=== PATIENT | female | born 1965 | race Caucasian/White ===

== ENCOUNTER 2016-04-30 12:22 | Emergency (ER) | payer OTHER ==
[2016-04-30 12:34] VITALS: BP 140/77; PULSE 104; TEMP 97.9; BMI 29.9
[2016-04-30] MEDS ORDERED: KETOROLAC TROMETHAMINE 60 MG/2 ML VIAL IM ONE (13:45)
--- NOTE | 2016-04-30 13:45 | PDOC ---
History of Present Illness - General Chief Complaint: Back Pain Stated Complaint: LOWER BACK PAIN Time Seen by Provider: 04/30/16 13:24 History Source: Patient Exam Limitations: No Limitations - History of Present Illness Initial Comments: CHIEF COMPLAINT: 51 y/o female c/o left sided low back pain radiating to her left leg x 2 days. HISTORY OF PRESENT ILLNESS: The patient states she lifted up to grab dry cleaning and felt a twinge in her left low back. Since then she has had pain shooting down her left leg and is having trouble getting comfortable. She took 1 voltaren yesterday which helped for a little while. She denies fall, trauma to back, numbness/tingling in lower extremities, bowel/bladder incontinence. Vital signs on arrival are notable for pulse of 104. REVIEW OF SYSTEMS: GENERAL/CONSTITUTIONAL: No fever/chills. No weakness. No weight change. GENITOURINARY: No dysuria, frequency, or change in urination. MUSCULOSKELETAL: No neck pain. +left low back pain radiating down left leg SKIN: No rash or easy bruising. NEUROLOGIC: No headache, vertigo, loss of consciousness, or loss of sensation. PHYSICAL EXAM: GENERAL: The patient is awake, alert, and fully oriented, in no acute distress. HEAD: Normal with no signs of trauma. BACK: No midline lumbar spine TTP. TTP of left lumbar paravertebral muscles. Pain in leg reproduced with palpation of left gluteal muscles. EXTREMITIES: Normal range of motion, no edema. NEUROLOGICAL: Normal speech, normal gait. CN II-XII grossly intact. No saddle anesthesia. PSYCH: Normal mood, normal affect. SKIN: Warm, dry, normal turgor, no rashes or lesions noted. Past History - Past Medical History Allergies/Adverse Reactions: Allergies Allergy/AdvReac Type Severity Reaction Status Date / Time No Known Allergies Allergy Verified 04/30/16 12:31 Home Medications: Ambulatory Orders Diazepam [Valium] 5 mg PO HS #5 tablet MDD 3 04/30/16 Ibuprofen 600 mg PO TID #20 tablet 04/30/16 - Psycho/Social/Smoking Cessation Hx Anxiety: No Suicidal Ideation: No Smoking History: Never smoked Have you smoked in the past 12 months: No Information on smoking cessation initiated: No Hx Alcohol Use: No Drug/Substance Use Hx: No Substance Use Type: None *Physical Exam - Vital Signs Last Vital Signs Temp Pulse Resp BP Pulse Ox 97.9 F 104 H 18 140/77 100 04/30/16 12:32 04/30/16 12:32 04/30/16 12:32 04/30/16 12:32 04/30/16 12:32 Medical Decision Making - Medical Decision Making A/P: 51 y/o female with left low back pain with sciatica. Will give IM Toradol; muscle relaxer not given because patient driving home. Showed the patient some stretching exercises to perform at home to help with pain. Suggested she also use heating pad and have someone massage her left butt to help relief muscle spasm Will send rx for ibuprofen and valium. Instructed her to take valium at night to help with sleep and that it may cause drowsiness. The patient verbalizes understanding of all instructions, has no further questions and is awaiting discharge. *DC/Admit/Observation/Transfer Diagnosis at time of Disposition: Low back pain with sciatica Qualifiers: Chronicity: acute Back pain laterality: right Sciatica laterality: sciatica of right side Qualified Code(s): M54.41 - Lumbago with sciatica, right side - Discharge Dispostion Disposition: HOME Condition at time of disposition: Improved - Prescriptions Prescriptions: Ibuprofen 600 mg PO TID #20 tablet Diazepam [Valium] 5 mg PO HS #5 tablet MDD 3 - Referrals Referrals: STAFF,NOT ON [Primary Care Provider] - - Patient Instructions Printed Discharge Instructions: DI for Back Pain With Sciatica Additional Instructions: Discharge instructions: -Take medications as prescribed -Valium may cause drowsiness -Do stretching exercises every hour to help relieve symptoms -Have someone massage your back to help with pain -Use heating pad to affected area Print Language: THAI
[2016-04-30] MEDS ORDERED: KETOROLAC TROMETHAMINE 60 MG/2 ML VIAL ONE (13:56)
== END 2016-04-30 14:13 | disposition home or self-care (01) ==
LOC: JERFT 12:22
PROC: 3E0233Z Introduction of Anti-inflammatory into Muscle, Percutaneous Approach (ICD-10-PCS; principal; 2016-04-30)
DX: M54.42 Lumbago with sciatica, left side (principal)
CPT/HCPCS: 99281-25

== ENCOUNTER 2016-08-13 07:06 | Emergency (ER) | payer OTHER ==
[2016-08-13 07:53] VITALS: BP 135/73; PULSE 88; TEMP 98.6; BMI 30.5
[2016-08-13] MEDS ORDERED: predniSONE 20 MG TABLET (UD) PO ONE (08:27)
[2016-08-13] MEDS ORDERED: predniSONE 20 MG TABLET (UD) ONE (08:30)
--- NOTE | 2016-08-13 08:34 | PDOC ---
History of Present Illness - General Chief Complaint: Allergic Reaction Stated Complaint: ALLERGIC REACTION Time Seen by Provider: 08/13/16 07:41 History Source: Patient Exam Limitations: No Limitations - History of Present Illness Initial Comments: 08/13/16 08:28 pt with itchy eyes redness around the eyes for 4 weeks. Pt also with itchy redness to left arm. Pt applying neosporin around her eyes as well as using cromylyn drops and taking ada. no fever no chills no medical history. 08/13/16 16:53 Past History - Past Medical History Allergies/Adverse Reactions: Allergies Allergy/AdvReac Type Severity Reaction Status Date / Time No Known Allergies Allergy Verified 04/30/16 12:31 Home Medications: Ambulatory Orders Diazepam [Valium] 5 mg PO HS #5 tablet MDD 3 04/30/16 Ibuprofen 600 mg PO TID #20 tablet 04/30/16 Prednisone [Deltasone -] 20 mg PO DAILY #7 tablet 08/13/16 Other medical history: denies - Psycho/Social/Smoking Cessation Hx Anxiety: Yes Suicidal Ideation: No Smoking History: Never smoked Have you smoked in the past 12 months: No Information on smoking cessation initiated: No Hx Alcohol Use: No Drug/Substance Use Hx: No Substance Use Type: None *Physical Exam - Vital Signs Last Vital Signs Temp Pulse Resp BP Pulse Ox 98.6 F 88 20 135/73 98 08/13/16 07:49 08/13/16 07:49 08/13/16 07:49 08/13/16 07:49 08/13/16 07:49 - Physical Exam General Appearance: Yes: Nourished, Appropriately Dressed HEENT: positive: EOMI, ANGELIQUE, Normal ENT Inspection, TMs Normal, Pharynx Normal, Other (periorbital bilaterally erythema with scaly rash , no eye pain or discharge from eyes) Neck: positive: Supple. negative: Tender Respiratory/Chest: positive: Lungs Clear, Normal Breath Sounds Cardiovascular: positive: Regular Rhythm, Regular Rate Extremity: positive: Normal Capillary Refill, Normal Inspection, Normal Range of Motion Integumentary: positive: Normal Color, Dry, Warm, Other (no rash to arms at present) Neurologic: positive: Fully Oriented, Alert, Normal Mood/Affect, Normal Response , Motor Strength 5/5 Medical Decision Making - Medical Decision Making 06/15/17 16:54 cc: rash around the eyes , itchy red and irritated, pt has been applying neosporin no eye discharge or pain pt to follow up with the licensed midwife as discussed *DC/Admit/Observation/Transfer Diagnosis at time of Disposition: Allergic reaction Qualifiers: Encounter type: initial encounter Qualified Code(s): T78.40XA - Allergy, unspecified, initial encounter - Discharge Dispostion Disposition: HOME Condition at time of disposition: Good - Prescriptions Prescriptions: Prednisone [Deltasone -] 20 mg PO DAILY #7 tablet - Referrals Referrals: STAFF,NOT ON [Primary Care Provider] - Gurwinder Alexandra MD [Staff Physician] - - Patient Instructions Additional Instructions: apply cool compresses (washcloth soaked in cold water) to the eyes every few hours for 15 minutes DO NOT USE NEOSPORIN take prednisone as directed , next dose tomorrow morning continue taking the eye drops and the allergy medicine as directed follow with the licensed midwife if no improvement
== END 2016-08-13 08:42 | disposition home or self-care (01) ==
LOC: JERFT 07:06 → JER 07:06 → JERFT 08:42
DX: T78.40XA Allergy, unspecified, initial encounter (principal); X58.XXXA Exposure to other specified factors, initial encounter
CPT/HCPCS: 99281-25

== ENCOUNTER 2018-04-16 11:36 | Emergency (ER) | payer OTHER ==
[2018-04-16 11:45] VITALS: BMI 29.5
[2018-04-16] MEDS ORDERED: ACETAMINOPHEN 325 MG TABLET (FP) PO ONE (12:31)
[2018-04-16] MEDS ORDERED: METOCLOPRAMIDE HCL INJECTION 10 MG/2 ML VIAL IVPB ONE (12:31)
[2018-04-16] MEDS ORDERED: SODIUM CHLORIDE 1,000 ML IV STA (12:32)
--- NOTE | 2018-04-16 12:33 | PDOC ---
History of Present Illness <Radha Lobo - Last Filed: 04/16/18 14:14> - General History Source: Patient Exam Limitations: No Limitations <Vangie Sanchez - Last Filed: 04/16/18 14:19> - General Chief Complaint: Headache Stated Complaint: PAIN Time Seen by Provider: 04/16/18 12:18 Past History <Radha Lobo - Last Filed: 04/16/18 14:14> - Past Medical History COPD: No Thyroid Disease: Yes - Suicide/Smoking/Psychosocial Hx Smoking History: Never smoked Have you smoked in the past 12 months: No Hx Alcohol Use: No Drug/Substance Use Hx: No Substance Use Type: None <Vangie Sanchez - Last Filed: 04/16/18 14:19> - Past Medical History Allergies/Adverse Reactions: Allergies Allergy/AdvReac Type Severity Reaction Status Date / Time No Known Allergies Allergy Verified 04/16/18 11:45 Home Medications: Ambulatory Orders Diazepam [Valium] 5 mg PO HS #5 tablet MDD 3 04/30/16 Ibuprofen 600 mg PO TID #20 tablet 04/30/16 predniSONE [Deltasone -] 20 mg PO DAILY #7 tablet 08/13/16 *Physical Exam - Vital Signs Last Vital Signs Temp Pulse Resp BP Pulse Ox 98.5 F 102 H 20 134/81 98 04/16/18 11:42 04/16/18 11:42 04/16/18 11:42 04/16/18 11:42 04/16/18 11:42 <Radha Lobo - Last Filed: 04/16/18 14:14> - Vital Signs Last Vital Signs Temp Pulse Resp BP Pulse Ox 98.5 F 102 H 20 134/81 98 04/16/18 11:42 04/16/18 11:42 04/16/18 11:42 04/16/18 11:42 04/16/18 11:42 - Physical Exam General Appearance: No: Apparent Distress HEENT: positive: ANGELIQUE Respiratory/Chest: positive: Lungs Clear, Normal Breath Sounds. negative: Respiratory Distress Cardiovascular: positive: Regular Rhythm, Regular Rate, S1, S2. negative: Murmur Integumentary: positive: Normal Color Neurologic: positive: hiv prevention specialist II-XII NML intact, Fully Oriented, Alert, Normal Mood/ Affect, Normal Response, Motor Strength 5/5. negative: Sensory Deficit <Vangie Sanchez - Last Filed: 04/16/18 14:19> Moderate Sedation - Procedure Monitoring Vital Signs: Procedure Monitoring Vital Signs Temperature 98.5 F 04/16/18 11:42 Pulse Rate 102 H 04/16/18 11:42 Respiratory Rate 20 04/16/18 11:42 Blood Pressure 134/81 04/16/18 11:42 O2 Sat by Pulse Oximetry (%) 98 04/16/18 11:42 <Radha Lobo - Last Filed: 04/16/18 14:14> - Procedure Monitoring Vital Signs: Procedure Monitoring Vital Signs Temperature 98.5 F 04/16/18 11:42 Pulse Rate 102 H 04/16/18 11:42 Respiratory Rate 20 04/16/18 11:42 Blood Pressure 134/81 04/16/18 11:42 O2 Sat by Pulse Oximetry (%) 98 04/16/18 11:42 <Vangie Sanchez - Last Filed: 04/16/18 14:19> ED Treatment Course - Medications Given in the ED: ED Medications Discontinued Medications Generic Name Dose Route Start Last Admin Trade Name Freq PRN Reason Stop Dose Admin Acetaminophen 975 mg 04/16/18 12:31 04/16/18 13:10 Tylenol - PO 04/16/18 12:32 975 mg ONCE ONE Administration Sodium Chloride 1,000 mls @ 1,000 mls/hr 04/16/18 12:32 04/16/18 13:10 Normal Saline - IV 04/16/18 13:31 1,000 mls/hr ASDIR STA Administration Metoclopramide HCl 10 mg 04/16/18 12:31 04/16/18 13:15 Reglan Injection - IVPB 04/16/18 12:32 10 mg ONCE ONE Administration <Radha Lobo - Last Filed: 04/16/18 14:14> Medical Decision Making - Medical Decision Making The patient was seen and evaluated in conjunction with midlevel provider under my direct supervision, ancillary studies were reviewed. I agree with the plan as outlined by MAU Sanchez. HPI, workup/dispo as outlined. improved with meds, no neuro deficits or changes neuro and PCP followup outpatient, return precautions. 04/16/18 14:14 <Radha Lobo Kingfelicitas - Last Filed: 04/16/18 14:14> - Medical Decision Making 53 y/o F with no sig pmh presents with R sided HAYWOOD from last night, gradual in onset. Took Tylenol last night and 1 pill this AM without relief of HAYWOOD. HAYWOOD is worse with light. Denies any prior history of headaches. Denies visual/gait changes, numbness/tingling/weakness of extremities, n/v, dizziness. Likely migraine HAYWOOD Plan: Tylenol, Reglan, IVF, reassess 04/16/18 12:32 On reassessment, patient feeling much better, stating her HAYWOOD is gone Stable for dc 04/16/18 14:17 <Vangie Sanchez - Last Filed: 04/16/18 14:19> *DC/Admit/Observation/Transfer <Radha Loboopal - Last Filed: 04/16/18 14:14> - Discharge Dispostion Decision to Admit order: No <Vangie Sanchez - Last Filed: 04/16/18 14:19> Diagnosis at time of Disposition: Migraine Qualifiers: Migraine type: unspecified Status migrainosus presence: without status migrainosus Intractability: not intractable Qualified Code(s): G43.909 - Migraine, unspecified, not intractable, without status migrainosus - Discharge Dispostion Disposition: HOME Condition at time of disposition: Improved - Referrals Referrals: ON STAFF,NOT [Primary Care Provider] - - Patient Instructions Printed Discharge Instructions: DI for Migraine Additional Instructions: Thank you for choosing [facility]. It was a pleasure taking care of you. Likely you had a migraine headache Follow-up with your doctor in 2-3 days Return to the Emergency Department if your symptoms worsen or persist, you have fever, shortness of breath, chest pain, severe abdominal pain, vomiting, dizziness, weakness of extremities (arms and/or legs), changes in vision or walking or other concerning symptoms. Print Language: K[place]IL[place] - Post Discharge Activity
[2018-04-16] MEDS ORDERED: ACETAMINOPHEN 325 MG TABLET (FP) ONE (13:09)
[2018-04-16] MEDS ORDERED: METOCLOPRAMIDE HCL INJECTION 10 MG/2 ML VIAL ONE (13:09)
[2018-04-16 15:06] VITALS: BP 130/80; PULSE 85; TEMP 98.1
== END 2018-04-16 14:30 | disposition home or self-care (01) ==
LOC: JER 11:36
PROC: 3E0337Z Introduction of Electrolytic and Water Balance Substance into Peripheral Vein, Percutaneous Approach (ICD-10-PCS; principal; 2018-04-16)
PROC: 3E033GC Introduction of Other Therapeutic Substance into Peripheral Vein, Percutaneous Approach (ICD-10-PCS; 2018-04-16)
DX: G43.909 Migraine, unspecified, not intractable, without status migrainosus (principal)
CPT/HCPCS: 96361; 96374; 99283-25; J7030